=== PATIENT | female | born 1990 | race Hispanic/Latino ===

== ENCOUNTER 2020-09-25 06:19 | Inpatient (IN) | payer MEDICAID ==
[~2020-09-25] VITALS: Ht 152.4 cm; Wt 87.1 kg
[2020-09-25] MEDS ORDERED: OXYTOCIN-LR 20 UNITS/1000 ML 1,000 ML IV SCH (07:00)
[2020-09-25] MEDS ORDERED: LACTATED RINGERS 1000ML 1,000 ML IV PRN (07:00)
[2020-09-25 07:08] VITALS: BP 120/80
[2020-09-25] MEDS ORDERED: LACTATED RINGERS 500 ML 500 ML IV PRN (07:15)
[2020-09-25] MEDS ORDERED: MEPERIDINE-PF 50 MG/ML SYG IVP PRN (07:15)
[2020-09-25] MEDS ORDERED: ROPIVACAINE 0.2% 100ML VIAL 100 ML EP PRN (07:15)
[2020-09-25] MEDS ORDERED: PROMETHAZINE HCL 25 MG/ML 1ML AMPULE IM PRN (07:15)
[2020-09-25] MEDS ORDERED: NALOXONE HCL 0.4 MG/1 ML ML IV PRN (07:15)
[2020-09-25] MEDS ORDERED: EPHEDRINE SULFATE 50 MG/ML AMPULE IVP PRN (07:15)
[2020-09-25 07:39] LABS: HEMATOCRIT 36.6 % (36-48); MEAN CORPUSCULAR HEMOGLOBIN 22.9 pg (27.0-33.0); MEAN CORPUSCULAR HGB CONC 31.1 g/dL (32.0-36.0); MEAN CORPUSCULAR VOLUME 73.6 fL (79-99); PLATELET COUNT (AUTO) 189 K/uL (130-400); RED BLOOD CELL COUNT(AUTO) 4.97 MIL/uL (4.00-5.50); RED CELL DISTRIBUTION WIDTH 24.3 % (11.0-15.5); WHITE BLOOD COUNT (AUTO) 6.7 K/uL (4.8-10.8)
[2020-09-25 07:48] LABS: APPEARANCE,URINE Clear (CLEAR); BILIRUBIN,URINE Negative (NEGATIVE); COLOR,URINE Dark Yellow (YELLOW); GLUCOSE, URINE (UA) Negative (NEGATIVE); KETONES,URINE Trace mg/dL (NEGATIVE); LEUKOCYTE ESTERASE ,URINE Trace (NEGATIVE); NITRATE,URINE Negative (NEGATIVE); OCCULT BLOOD,URINE Negative (NEGATIVE); PROTEIN,URINE Negative (NEGATIVE)
[2020-09-25 08:19] LABS: RAPID PLASMA REAGIN NONREACTIVE (NONREACTIVE)
[2020-09-25 09:03] LABS: BACTERIA,URINE None Seen /HPF (None Seen); RBC,URINE None Seen /HPF (0-1); SQUAMOUS EPITHELIAL CELL,UR 0-2 /HPF (0-2); WBC,URINE 0-1 /HPF (0-1)
[2020-09-25 09:04] LABS: MUCUS,URINE Many LPF (None Seen)
[2020-09-25] MEDS ORDERED: WITCH HAZEL 1 PAD TP PRN (16:45)
[2020-09-25] MEDS ORDERED: ACETAMINOPHEN 325 MG TAB PO PRN (16:45)
[2020-09-25] MEDS ORDERED: ACETAMINOPHEN WITH CODEINE 1 TAB TAB PO PRN (16:45)
[2020-09-25] MEDS ORDERED: LANOLIN 30GM OINTMENT TP PRN (16:45)
[2020-09-25] MEDS ORDERED: BENZOCAINE/LANOLIN/ALOE VERA 60 ML AEROSOL TP PRN (16:45)
[2020-09-25] MEDS: OXYTOCIN-LR 20 UNITS/1000 ML 1,000 ML IV SCH ×2 (17:10→22:17)
[2020-09-25] MEDS: IBUPROFEN 600 MG TABLET PO PRN (19:26)
[2020-09-25] MEDS: DOCUSATE SODIUM 100 MG CAP PO SCH (20:34)
[2020-09-25 21:02] VITALS: BP 143/88
[2020-09-25 22:56] VITALS: BP 116/76
[2020-09-26 02:52] VITALS: BP 113/69
[2020-09-26] MEDS ORDERED: FLU VACC QS2020-21(6MOS UP)/PF 60 MCG/0.5 ML ML IM ONE (03:15)
[2020-09-26] MEDS ORDERED: DIPH,PERTUSS(ACELL),TET VAC/PF 0.5 ML VIAL IM ONE ×2 (03:15→04:48)
[2020-09-26] MEDS: FLU VACC QS2020-21(6MOS UP)/PF 60 MCG/0.5 ML ML IM ONE ×2 (04:55→05:01)
[2020-09-26 06:18] VITALS: BP 98/56
[2020-09-26] MEDS: DOCUSATE SODIUM 100 MG CAP PO SCH (07:40)
[2020-09-26] MEDS: IBUPROFEN 600 MG TABLET PO PRN ×2 (07:41→15:25)
[2020-09-26 11:17] VITALS: BP 104/68
[2020-09-26 15:09] VITALS: BP 119/74
[2020-09-28 04:09] LABS: HEPATITIS Bs ANTIGEN SCREEN P Negative (Negative)
== END 2020-09-26 18:10 | disposition home or self-care (01) | DRG 560 ==
LOC: LDH 06:19 → WSH 20:55
PROVIDERS: ADMIT Specialist; ATTEND Specialist
PROC: 10E0XZZ Delivery of Products of Conception, External Approach (ICD-10-PCS; principal; 2020-09-25)
PROC: 3E033VJ Introduction of Other Hormone into Peripheral Vein, Percutaneous Approach (ICD-10-PCS; 2020-09-25)
PROC: 10907ZC Drainage of Amniotic Fluid, Therapeutic from Products of Conception, Via Natural or Artificial Opening (ICD-10-PCS; 2020-09-25)
PROC: 3E0234Z Introduction of Serum, Toxoid and Vaccine into Muscle, Percutaneous Approach (ICD-10-PCS; 2020-09-25)
PROC: 3E02340 Introduction of Influenza Vaccine into Muscle, Percutaneous Approach (ICD-10-PCS; 2020-09-25)
PROC: 3E0R3BZ Introduction of Anesthetic Agent into Spinal Canal, Percutaneous Approach (ICD-10-PCS; 2020-09-25)
PROC: 00HU33Z Insertion of Infusion Device into Spinal Canal, Percutaneous Approach (ICD-10-PCS; 2020-09-25)
DX: O80 Encounter for full-term uncomplicated delivery (principal); Z23 Encounter for immunization; Z37.0 Single live birth; Z3A.39 39 weeks gestation of pregnancy
CPT/HCPCS: 36415; 81001; 85027; 86592; 86701; 86850; 86900; 86901; 87340; 87390; 90715; A4314; A4351; A4606; G0378; J2590; J2795; J7120; Q2035